=== PATIENT | female | born 1955 | race Caucasian/White ===

== ENCOUNTER 2018-12-08 07:00 | Inpatient (IN) | payer BC ==
[2018-12-06 18:46] VITALS: BMI 22.9
[~2018-12-08] VITALS: Ht 175.3 cm; Wt 68.8 kg
[2018-12-08] VITALS (29 sets, daily range): BP systolic 87–133; BP diastolic 45–86; PULSE 56–82; RESP 14–20; Ht 175.3 cm; Wt 68.8 kg
--- NOTE | 2018-12-08 05:54 | HPN ---
Date/Time of Note Date/Time of Note DATE: 12/08/18 TIME: 05:54 Interval H&P Admission Note Pt. seen H&P reviewed: No system changes DHRUV ALBA MD December 08, 2018 05:54
--- NOTE | 2018-12-08 05:56 | OPR ---
Date/Time of Note Date/Time of Note DATE: 12/08/18 TIME: 05:54 Operative Report Procedure Date: December 08, 2018 Preoperative Diagnosis Right hip primary arthritis Postoperative Diagnosis Right hip primary arthritis Operation/Procedure Performed 1. Right total hip arthroplasty 2. Injection of PRP solution Surgeon see signature line Stogy Roller Ravi Sidhu DO Second Stogy Roller: ZEE LUJAN PA-C Anesthesia Type: general Estimated Blood Loss: 150 - 200 ml's Transfusion none Specimen None Grafts/Implants See op note Complications none Pt Condition Post Procedure: stable Disposition: PACU Procedure Description TOOL AND DIE MAKER/DESIGNER SURGEON: Ravi Sidhu DO was integral to the positioning and assistance necessary in the exposure of the hip joint as well as protection of the neurovascular structures. In my opinion at the assistance offered by a certified surgical tech/first assistant is insufficient and Dr. Sidhu should be compensated for his time. PROCEDURE IN DETAIL: Following the administration of general endotracheal anesthesia supplemented with a spinal anesthetic, the patient was placed in the supine position. The antecubital fossa on the right was prepped and 60 cc of blood were aspirated. Under sterile conditions, the blood was passed off to the office machines sales representative from the company who prepared the PRP solution. The right lower extremity was then prepped and draped in the usual sterile fashion. A convertible power shovel operator radiograph was obtained for preliminary limb length and femoral size as well as acetabular size. A lateral incision was then made exposing the tensor fascia the fascia was incised the tensor was retracted laterally and the vessels were cauterized. The anterior capsule was then identified and prepared. A capsulectomy was then performed and the femoral head was then evaluated. Severe arthritic changes were noted. A femoral head cut was then made in the appropriate degree of version and inclination. Following dislocation, severe arthritic changes were noted with very certain severe cystic changes in the femoral head. The acetabulum was then exposed and a capsulectomy and labrectomy were completed. The central portion was then entered and serially reamed up to the 51 mm size. A Depuy [place] cup which was 50 to mm, with a standard liner was then fit into position with solid fixation. A 30 mm screw was used for additional fixation. Attention was then directed to the femur, the femur was exposed and prepared. The canal was entered and serially reamed up to the size 6, standard offset. The femoral canal was then thoroughly irrigated and the PRP solution was then instilled into the femoral canal. A size 6 standard offset Depuy Actis standard offset stem was then inserted with solid fixation. A 32 mm, +1.5 mm femoral head, which was ceramic was then inserted. The leg was taken through full range of motion with no evident instability. In addition, radiographs revealed excellent position with reproduction of the limb lengths within a millimeter. The wound was irrigated thoroughly. The wound was then closed in layers and a Prenio for the final cover. This was watertight. Estimated blood loss was procedure was 200 cc. Postoperative radiographs will be obtained in the recovery room. DHRUV ALBA MD December 08, 2018 05:56
[~2018-12-08 07:00] MED LIST: BUPIVACAINE 0.5% (SDV) 30 ML, morphine SULFATE (PF) 8 MG, EPINEPHrine 0.3 MG, KETOROLAC... IRR SCH; CEFAZOLIN 2 GM/50 ML (PMX) 50 ML IVPB SCH; DEXAMETHASONE 1 MG TAB PO ONE; GABAPENTIN 300 MG CAP PO SCH; SOD CHLORIDE 0.9% 100 ML, TRANEXAMIC ACID 3,000 MG IRR SCH; TRANEXAMIC ACID 1GM/100ML(PMX) 100 ML IVPB ONE
[2018-12-08] MEDS ORDERED: ASPI81TA52 PO (08:19)
[2018-12-08] MEDS ORDERED: FLUT1AER INHALATION (08:19)
[2018-12-08] MEDS ORDERED: MONT10TA21 PO (08:20)
[2018-12-08] MEDS ORDERED: ATOR20TA38 PO (08:20)
[2018-12-08] MEDS ORDERED: LACTATED RINGER'S 1,000 ML IV SCH (08:30)
--- NOTE | 2018-12-08 09:34 | PREAC ---
Date/Time of Note Date/Time of Note DATE: 12/08/18 TIME: 09:31 Anesthesia Eval and Record Evaluation Time Pre-Procedure Interview DATE: 12/08/18 TIME: 09:31 Age 63 Sex female NPO: 8 hrs Preoperative diagnosis DJD R. Hip Planned procedure AL Past Medical History Past Medical History: Includes Cardio: Dyslipidemia Pulm: Asthma : Other (Hypereosinophilia) Surgery & Anesthesia Issues No known issue Meds Anticoagulation: No Beta Josesito within 24 hr: No Reason Beta Josesito not given: Pt. not on B-Josesito Reported Medications Montelukast Sodium* (Singulair*) 10 Mg Tablet, 10 MG PO QHS, #30 TAB 12/08/18 Atorvastatin Calcium* (Atorvastatin Calcium*) 20 Mg Tablet, 20 MG PO QHS, #30 TAB 12/08/18 Aspirin (Low Dose Aspirin) 81 Mg Tablet.dr, 81 MG PO DAILY, #30 TAB 12/08/18 Fluticasone-Vilanterol (Breo Ellipta Inhaler) 100-25 Mcg/Actuation Aer.pow.ba, 1 PUFF INHALATION DAILY, #1 INHALER 12/08/18 Current Medications Cefazolin Sodium/ Dextrose 50 ml @ 100 mls/hr PRE-OP IVPB ; Start 12/08/18 at 06:00; Stop 12/08/18 at 16:00 Sodium Chloride/ Tranexamic Acid INTRA-OP IRR ; Start 12/08/18 at 06:00; Stop 12/08/18 at 16:00 Bupivacaine HCl/ Morphine Sulfate/ Epinephrine/ Ketorolac Tromethamine/ Clonidine HCl/ Sodium Chloride/ Vancomycin HCl INTRA-OP IRR ; Start 12/08/18 at 06:00 Gabapentin (Neurontin) 300 mg ONCE PO Last administered on 12/08/18at 08:09; Admin Dose 300 MG; Start 12/08/18 at 06:00; Stop 12/08/18 at 12:00 Lactated Ringer's 1,000 ml @ 25 mls/hr Q24H IV ; Start 12/08/18 at 08:30 Meds reviewed: Yes Allergies Coded Allergies: Fish Containing Products (Verified Allergy, Severe, ANAPHYLAXIS, 12/08/18) shrimp (Verified Allergy, Unknown, ANAPHYLAXIS, 12/08/18) Allergies Reviewed: Yes Labs/Studies Labs Reviewed: Reviewed by anesthesiologist test: N/A Pre-procedure Exam Last vitals Vital Signs Date Temp Pulse Resp B/P (MAP) Pulse Ox O2 O2 Flow FiO2 Time Delivery Rate 12/08/18 98.0 76 16 119/77 98 Room Air 08:15 (91) Airway: Adequate mouth opening Mallampati: Mallampati II Teeth: Normal Lung: Normal Heart: Normal ASA Physical Status ASA physical status: 2 Emergency: None Planned Anesthetic General/MAC: LMA Nerve block: Other (Spinal for post OP pain) Pre-operative Attestations Prior to commencing anesthesia and surgery, the patient was re-evaluated, there was verification of: *The patient's identity *The results of appropriate recent lab work and preoperative vital signs *The above evaluation not changing prior to induction *Anesthetic plan, risk benefits, alternative and complications discussed with patient/family; questions answered; patient/family understands, accepts and wishes to proceed. ISAAC LAGOS MD December 08, 2018 09:34
[2018-12-08] MEDS ORDERED: PHENYLephrine (100 MCG/ML) 5ML SYG ONE (09:38)
[2018-12-08] MEDS ORDERED: PROPOFOL 20 ML ONE (09:38)
[2018-12-08] MEDS ORDERED: ONDANSETRON 4 MG INJ ONE (09:38)
[2018-12-08] MEDS ORDERED: CEFAZOLIN 1 GM INJ ONE (09:38)
[2018-12-08] MEDS ORDERED: KETOROLAC 30 MG INJ ONE (09:39)
[2018-12-08] MEDS ORDERED: THROMBIN 5000 UNIT VIAL ONE (10:18)
[2018-12-08] MEDS ORDERED: CA CHLORIDE (GM) 10% 10 ML INJ ONE (10:18)
[2018-12-08] MEDS ORDERED: POLYMYXIN/BACITRACIN 1L IRRIG ONE (10:18)
[2018-12-08] MEDS ORDERED: POLYMYXIN/BACITRACIN 1L IRRIG IRR ONE (10:26)
[2018-12-08] MEDS: LACTATED RINGER'S 1,000 ML IV SCH ×2 (11:16→18:47)
--- NOTE | 2018-12-08 11:20 | PDOCDIS ---
Discharge Instructions DIAGNOSIS Discharge Diagnosis Hip arthritis CONDITION [id number] Patient Condition: [id number] Good HOME CARE INSTRUCTIONS: [id number] Diet Instructions: Aijhe2p Regular ACTIVITY: [id number] Activity Restrictions: [id number] Rest between Activity Keep Limb Elevated [id number] Bathing Restrictions: [id number] Shower FOLLOW UP/APPOINTMENTS Follow-up Plan 2 weeks in the office SCHOOL/WORK RELEASE May return to School/Work with: With Restrictions School/Work Release Comment: No hip extension for 6 weeks DHRUV ALBA MD December 08, 2018 11:20
[2018-12-08] MEDS ORDERED: NACL 0.9% 3 ML SYG IV SCH (11:30)
[2018-12-08] MEDS ORDERED: oxyCODONE 5 MG TAB PO PRN (11:30)
[2018-12-08] MEDS ORDERED: ONDANSETRON 4 MG INJ IV PRN ×2 (11:30→12:00)
[2018-12-08] MEDS ORDERED: HYDROmorphONE 1 MG/ML SYG IV PRN (11:30)
[2018-12-08] MEDS ORDERED: MAGNESIUM HYDROXIDE 30ML CUP PO PRN (11:30)
[2018-12-08] MEDS ORDERED: DIPHENHYDRAMINE 50 MG INJ IV PRN (11:30)
[2018-12-08] MEDS ORDERED: ZOLPIDEM 5 MG TAB PO PRN (11:30)
--- NOTE | 2018-12-08 11:42 | PAC ---
Date/Time of Note Date/Time of Note DATE: 12/08/18 TIME: 11:42 Post-Anesthesia Notes Post-Anesthesia Note Last documented vital signs Vital Signs Date Temp Pulse Resp B/P (MAP) Pulse Ox O2 O2 Flow FiO2 Time Delivery Rate 12/08/18 98.0 76 16 119/77 98 Room Air 08:15 (91) Activity: WNL Respiratory function: WNL Cardiovascular function: WNL Mental status: Baseline Pain reasonably controlled: Yes Hydration appropriate: Yes Nausea/Vomiting absent: Yes ISAAC LAGOS MD December 08, 2018 11:42
[2018-12-08] MEDS: ACETAMINOPHEN 1000MG/100ML IV 100 ML IVPB SCH ×2 (12:00→20:19)
[2018-12-08] MEDS ORDERED: ACETAMINOPHEN 325 MG TAB PO ONE (12:00)
[2018-12-08] MEDS ORDERED: CEFAZOLIN 1 GM/50 ML (PMX) 50 ML IVPB SCH (12:00)
[2018-12-08] MEDS: DEXAMETHASONE 2 MG TAB PO SCH ×2 (12:00→18:39)
[2018-12-08] MEDS: oxyCODONE 5 MG TAB PO PRN ×2 (13:46→18:47)
[2018-12-08] MEDS: CEFAZOLIN 1 GM/50 ML (PMX) 50 ML IVPB SCH (18:39)
[2018-12-08] MEDS: SENNA/DOCUSATE NA (8.6MG/50MG) TAB PO SCH (20:21)
[2018-12-08] MEDS ORDERED: ATORVASTATIN 20 MG TAB PO SCH (21:00)
[2018-12-08] MEDS ORDERED: GABAPENTIN 300 MG CAP PO SCH (21:00)
[2018-12-08] MEDS ORDERED: MONTELUKAST 10 MG TAB PO SCH (21:00)
[2018-12-09 00:10] VITALS: BP 82/49; PULSE 68; RESP 20
[2018-12-09] MEDS: CEFAZOLIN 1 GM/50 ML (PMX) 50 ML IVPB SCH ×2 (00:22→08:13)
[2018-12-09] MEDS: DEXAMETHASONE 2 MG TAB PO SCH ×2 (00:22→05:28)
[2018-12-09] MEDS: oxyCODONE 5 MG TAB PO PRN ×3 (00:27→13:32)
[2018-12-09] MEDS: ACETAMINOPHEN 1000MG/100ML IV 100 ML IVPB SCH (04:58)
[2018-12-09] MEDS: LACTATED RINGER'S 1,000 ML IV SCH (05:28)
--- NOTE | 2018-12-09 06:23 | PN ---
Date/Time of Note Date/Time of Note DATE: 12/09/18 TIME: 06:22 Subjective Awake and alert with no complaints Objective Vitals Vital Signs Date Temp Pulse Resp B/P (MAP) Pulse Ox O2 O2 Flow FiO2 Time Delivery Rate 12/09/18 97.7 68 20 82/49 (60) 96 00:10 12/08/18 Room Air 18:00 Intake and Output 12/08/18 12/08/18 12/09/18 1515:00 23:00 07:00 IntakeIntake Total 2100 ml 1300 ml 1150 ml OutputOutput Total 950 ml 2300 ml BalanceBalance 1150 ml -1000 ml 1150 ml Wound clean and dry. Neurologically intact. No signs of DVT. Results Result Diagram: 12/09/18 0434 Medications Medications Current Medications Lactated Ringer's 1,000 ml @ 25 mls/hr Q24H IV ; Start 12/08/18 at 08:30 Atorvastatin Calcium (Lipitor) 20 mg QHS PO Last administered on 12/08/18at 20:24; Admin Dose 20 MG; Start 12/08/18 at 21:00 Fluticasone/ Vilanterol (Breo Ellipta 100-25 Mcg Inh) 100 inh DAILY INH ; Start 12/09/18 at 09:00 Montelukast Sodium (Singulair) 10 mg QHS PO ; Start 12/08/18 at 21:00 Lactated Ringer's 1,000 ml @ 100 mls/hr Q10H IV Last administered on 12/09/18at 05:28; Admin Dose 100 MLS/HR; Start 12/08/18 at 11:16 Senna/Docusate Sodium (Senokot-S) 1 tab BID PO Last administered on 12/08/18at 20:21; Admin Dose 1 TAB; Start 12/08/18 at 21:00 Simethicone (Mylicon) 80 mg TID PRN PO .GAS; Start 12/08/18 at 11:30 Magnesium Hydroxide (Milk Of Mag) 30 ml BID PRN PO .CONSTIPATION; Start 12/08/18 at 11:30 Magnesium Hydroxide (Milk Of Mag) 30 ml HS PO ; Start 12/10/18 at 21:00 Gabapentin (Neurontin) 300 mg HS PO Last administered on 12/08/18at 20:24; Admin Dose 300 MG; Start 12/08/18 at 21:00 Oxycodone HCl (Roxicodone) 15 mg Q4H PRN PO .PAIN Last administered on 12/09/18at 00:27; Admin Dose 15 MG; Start 12/08/18 at 11:30 Oxycodone HCl (Roxicodone) 10 mg Q4H PRN PO .PAIN Last administered on 12/08/18at 13:46; Admin Dose 10 MG; Start 12/08/18 at 11:30 Oxycodone HCl (Roxicodone) 5 mg Q4H PRN PO .PAIN; Start 12/08/18 at 11:30 Hydromorphone HCl (Dilaudid) 1 mg Q4H PRN IV .BREAKTHROUGH PAIN; Start 12/08/18 at 11:30 Ondansetron HCl (Zofran Inj) 4 mg Q6H PRN IV NAUSEA/VOMITING; Start 12/08/18 at 11:30 Diphenhydramine HCl (Benadryl) 25 mg Q6H PRN IV .PRURITUS; Start 12/08/18 at 11:30 Zolpidem Tartrate (Ambien) 10 mg HS PRN PO .INSOMNIA; Start 12/08/18 at 11:30 IV Flush (NS 3 ml) 3 ml per protocol IV ; Start 12/08/18 at 11:30 Aspirin (Ecotrin) 325 mg DAILY PO ; Start 12/09/18 at 09:00 Cefazolin Sodium 50 ml @ 100 mls/hr Q8H IVPB Last administered on 12/09/18at 00:22; Admin Dose 100 MLS/HR; Start 12/08/18 at 17:00; Stop 12/09/18 at 09:29 VTE Prophylaxis Risk score (from Nsg)>0 risk: 9 SCD applied (from Nsg): Yes Lines/Catheters IV Catheter Type: Saline Lock [place] in Place: No Assessment/Plan Assessment/Plan Assessment: Status post total hip Plan: Begin PT this morning discharge after PT DHRUV Goode MD December 09, 2018 06:23
--- NOTE | 2018-12-09 06:25 | DS ---
Date/Time of Note Date/Time of Note DATE: 12/09/18 TIME: 06:25 Discharge Summary Admission/Discharge Info Admit Date/Time December 08, 2018 at 07:33 Discharge Date/Time 12/09/2018 Discharge Diagnosis Hip arthritis Patient Condition: Good Hospital Course Admitted, underwent uncomplicated procedure. Postop day 1 stable afebrile discharge home to be followed in 2 weeks Home Meds Reported Medications Montelukast Sodium* (Singulair*) 10 Mg Tablet, 10 MG PO QHS, #30 TAB 12/08/18 Atorvastatin Calcium* (Atorvastatin Calcium*) 20 Mg Tablet, 20 MG PO QHS, #30 TAB 12/08/18 Aspirin (Low Dose Aspirin) 81 Mg Tablet.dr, 81 MG PO DAILY, #30 TAB 12/08/18 Fluticasone-Vilanterol (Breo Ellipta Inhaler) 100-25 Mcg/Actuation Aer.pow.ba, 1 PUFF INHALATION DAILY, #1 INHALER 12/08/18 Follow-up Plan 2 weeks in the office Primary Care Provider Not On Staff Doctor Pending Labs Laboratory Tests Test 12/08/18 12:10 12/09/18 04:34 White Blood Count 10.6 10^3/ul (4.8-10.8) 15.9 10^3/ul (4.8-10.8) Red Blood Count 4.03 10^6/ul (4.20-5.40) 3.55 10^6/ul (4.20-5.40) Hemoglobin 12.2 g/dl (12.0-16.0) 10.7 g/dl (12.0-16.0) Hematocrit 39.0 % (37.0-47.0) 33.9 % (37.0-47.0) Mean Corpuscular Volume 96.8 fl (82.0-101.0) 95.5 fl (82.0-101.0) Mean Corpuscular 30.3 pg (29.0-33.0) 30.1 pg (29.0-33.0) Hemoglobin Mean Corpuscular 31.3 g/dl (32.0-37.0) 31.6 g/dl (32.0-37.0) Hemoglobin Concent Red Cell Distribution 13.6 % (11.5-14.5) 13.5 % (11.5-14.5) Width Platelet Count 203 10^3/UL (140-415) 177 10^3/UL (140-415) Mean Platelet Volume 11.3 fl (7.4-10.4) 11.3 fl (7.4-10.4) Immature Granulocytes % 1.000 % (0.001-0.429) 0.600 % (0.001-0.429) Neutrophils % 89.6 % (39.0-77.0) 88.6 % (39.0-77.0) Lymphocytes % 6.6 % (15.0-51.0) 4.2 % (15.0-51.0) Monocytes % 2.3 % (0.0-11.0) 6.1 % (0.0-11.0) Eosinophils % 0.0 % (0.0-7.0) 0.1 % (0.0-7.0) Basophils % 0.5 % (0.0-2.0) 0.4 % (0.0-2.0) Nucleated Red Blood Cells 0.0 /100WBC (0.0-0.0) 0.0 /100WBC (0.0-0.0) % Immature Granulocytes # 0.110 10^3/ul (0.0-0.031) 0.090 10^3/ul (0.0-0.031) Neutrophils # 9.5 10^3/ul (1.6-7.5) 14.1 10^3/ul (1.6-7.5) Lymphocytes # 0.7 10^3/ul (0.8-2.9) 0.7 10^3/ul (0.8-2.9) Monocytes # 0.2 10^3/ul (0.3-0.9) 1.0 10^3/ul (0.3-0.9) Eosinophils # 0.0 10^3/ul (0.0-0.5) 0.0 10^3/ul (0.0-0.5) Basophils # 0.1 10^3/ul (0.0-0.1) 0.1 10^3/ul (0.0-0.1) Nucleated Red Blood Cells 0.0 10^3/ul (0.0-0.0) 0.0 10^3/ul (0.0-0.0) # DHRUV ALBA MD December 09, 2018 06:25
[2018-12-09 07:57] VITALS: BP 95/50; RESP 18
[2018-12-09] MEDS ORDERED: FLUTICASONE/VILANTEROL 100-25 INH SCH (09:00)
[2018-12-09] MEDS ORDERED: ASPIRIN (EC) 325 MG TAB PO SCH (09:00)
[2018-12-09] MEDS: SENNA/DOCUSATE NA (8.6MG/50MG) TAB PO SCH (13:30)
[2018-12-10] MEDS ORDERED: MAGNESIUM HYDROXIDE 30ML CUP PO SCH (21:00)
== END 2018-12-09 14:19 | disposition home or self-care (01) | DRG 470 ==
LOC: REC 07:33 → MS1 13:52
PROVIDERS: ADMIT Orthopaedic Surgery; ATTEND Orthopaedic Surgery
PROC: 0SR904A Replacement of Right Hip Joint with Ceramic on Polyethylene Synthetic Substitute, Uncemented, Open Approach (ICD-10-PCS; principal; 2018-12-08 09:30)
DX: M16.11 Unilateral primary osteoarthritis, right hip (principal); E78.5 Hyperlipidemia, unspecified
CPT/HCPCS: 72170; 73530; 85025; 86999; 87086; 88304; 88311; 97110; 97116; C1713; C1776; J0131; J0171; J0690; J1885; J2274; J2370; J2405; J3370; J7120